=== PATIENT | female | born 1995 | race Caucasian/White ===

== ENCOUNTER 2022-09-14 21:34 | Emergency (ER) | payer BC, SELFPAY ==
[2022-09-14 21:41] VITALS: BP 134/87; PULSE 85; RESP 22; TEMP 36.8; O2SAT 99; BMI 29.6
--- NOTE | 2022-09-14 21:57 | ED_ITS ---
HPI - URI/Sore Throat General Chief Complaint: Upper Respiratory Infection Stated Complaint: URTI Time Seen by Provider: 09/14/22 21:57 Source: patient Limitations: no limitations History of Present Illness HPI Narrative: ill for the past week. cough. Now short of breath. No fever. Cough is dry. Feels weak and took past couple of days off work. Denies history of asthma MD elicited complaint: Reports cough Related Data Home Medications Medication Instructions Recorded Confirmed No Known Home Medications 09/14/22 09/14/22 Allergies Allergy/AdvReac Type Severity Reaction Status Date / Time amoxicillin Allergy Hives Verified 09/14/22 21:47 Review of Systems ROS Status of ROS 10 or more systems reviewed and unremarkable except as noted in history and below Respiratory Reports: shortness of breath and cough PFSH PFSH Social History Smoking status: Current every day smoker Exam Constitutional Vital Signs - 24 hr 09/14/22 21:41 09/14/22 22:47 09/14/22 22:46 Temperature 98.2 F Pulse Rate 69 Pulse Rate [Monitor] 85 Respiratory Rate 22 18 22 Blood Pressure [Left Arm] 134/87 H Pulse Oximetry 99 99 Oxygen Delivery Method Room Air 09/14/22 22:56 09/15/22 00:14 09/15/22 00:43 Temperature Pulse Rate Pulse Rate [Monitor] 78 82 Respiratory Rate 24 24 24 Blood Pressure [Left Arm] Pulse Oximetry 98 99 Oxygen Delivery Method Room Air Room Air Common normals: no apparent distress, average body habitus, oriented x3, no limitations, healthy appearing, alert and well nourished [facility] Common normals: normocephalic, head/scalp atraumatic and hearing grossly normal bilaterally Eye Common normals: PERRL, EOMs intact bilaterally and conjunctivae normal Chest Common normals: inspection of chest normal Respiratory Common normals: normal respiratory effort and no use of accessory muscles Other: coarse BS distant Cardio Common normals: regular rate, regular rhythm, S1 normal heart sound and S2 normal heart sound GI Common normals: Normal to inspection, nondistended, normoactive bowel sounds present, soft to palpation and non-tender Extremity Common normals: normal to inspection, full ROM, normal capillary refill and no joint enlargement Neuro Common normals: oriented x3, CN's II-XII intact bilaterally, moves all extremities and no focal motor deficits Psych Appearance: grossly normal Course Vital Signs Vital signs: Vital Signs Temperature 98.2 F 09/14/22 21:41 Pulse Rate 85 09/14/22 21:41 Respiratory Rate 22 09/14/22 21:41 Blood Pressure 134/87 H 09/14/22 21:41 Pulse Oximetry 99 09/14/22 21:41 Oxygen Delivery Method Room Air 09/14/22 21:41 Temperature 98.2 F 09/14/22 21:41 Pulse Rate 82 09/15/22 00:43 Respiratory Rate 24 09/15/22 00:43 Blood Pressure 134/87 H 09/14/22 21:41 Pulse Oximetry 99 09/15/22 00:43 Oxygen Delivery Method Room Air 09/15/22 00:43 MDM - URI/Sore Throat MDM Narrative Medical decision making narrative: patient ill with cough and feels short of breath. Swab positive for Rhino/entero virus. Cxray clear. Patient feeling better after albuterol treatment and solumedrol. No longer feels short of breath but still has cough. Discharged home with a prescription for prednisone and albuterol inhaler and is to follow up with her doctor for recheck Lab Data Labs: Lab Results 09/14/22 09/14/22 09/14/22 Range/Units 21:54 21:54 22:19 WBC 9.2 (4.0-11.0) 10^3/uL RBC 5.50 H (4.20-5.40) 10^6/uL Hgb 16.5 H (12.0-16.0) g/dL Hct 48.8 H (36.0-48.0) % MCV 88.7 (81.0-99.0) fL MCH 30.0 (26.7-34.0) pg MCHC 33.8 (29.9-35.2) g/dL RDW 14.2 (11.0-15.0) % Plt Count 246 (150-450) 10^3/uL MPV 10.2 (9.5-13.5) fL Neut % (Auto) 69.7 (43.0-75.0) % Lymph % (Auto) 24.3 (20.5-60.0) % [place] % (Auto) 4.9 (1.7-12.0) % Eos % (Auto) 0.4 L (0.9-7.0) % Baso % (Auto) 0.4 (0.2-2.0) % Neut # (Auto) 6.4 (1.4-6.5) 10^3/uL Lymph # (Auto) 2.2 (1.2-3.8) 10^3/uL [place] # (Auto) 0.5 (0.3-0.8) 10^3/uL Eos # (Auto) 0.0 (0.0-0.7) 10^3/uL Baso # (Auto) 0.0 (0.0-0.1) 10^3/uL Abs Immat Gran (auto) 0.03 (0.00-0.03) 10^3/uL Imm/Tot Granulo (auto) 0.3 (0.0-0.5) % D-Dimer 0.51 (<=0.59) mg/L FEU Sodium 136 (136-145) mmol/L Potassium 3.7 (3.5-5.1) mmol/L Chloride 102 (98-107) mmol/L Carbon Dioxide 19.7 L (21.0-32.0) mmol/L Anion Gap 18.0 BUN 12.0 (7.0-18.0) mg/dL Creatinine 0.92 (0.55-1.02) mg/dL Est GFR ( Amer) >60 (>=60) Est GFR (Non-Af Amer) >60 (>=60) BUN/Creatinine Ratio 13.0 Glucose 78 (74-106) mg/dL Lactate 1.5 (0.4-2.0) mmol/L Calcium 9.8 (8.5-10.1) mg/dL Adenovirus (PCR) Not detected (NOT DETECTE) C. pneumoniae DNA (PCR) Not detected (NOT DETECTE) Coronavirus Type OC43 Not detected (NOT DETECTE) Coronavirus Type HKU1 Not detected (NOT DETECTE) Coronavirus Type 229E Not detected (NOT DETECTE) SARS-CoV-2 (PCR) Negative Not detected (NEGATIVE) Coronavirus Type NL63 Not detected (NOT DETECTE) Human Metapneumovir PCR Not detected (NOT DETECTE) M. pneumoniae (PCR) Not detected (NOT DETECTE) Parainfluenza PCR Not detected (NOT DETECTE) Parainfluenza 2 (PCR) Not detected (NOT DETECTE) Parainfluenza 3 (PCR) Not detected (NOT DETECTE) Parainfluenza 4 (PCR) Not detected (NOT DETECTE) RSV (RT-PCR) Not detected (NOT DETECTE) Entero/Rhino (PCR) Detected A (NOT DETECTE) Bordetella pertussis (PCR) Not detected (NOT DETECTE) B parapertussis DNA PCR Not detected (NOT DETECTE) Influenza Type A (PCR) Not detected (NOT DETECTE) Influenza Type B (PCR) Not detected (NOT DETECTE) Discharge Plan Discharge Chief Complaint: Upper Respiratory Infection Clinical Impression: Acute bronchospasm, Viral infection Patient Disposition: Home, Self-Care Condition: Good Mode of Transportation: Private Vehicle Prescriptions / Home Meds: No Action No Known Home Medications Print Language: Jordanian Instructions: Viral Syndrome (ED), Bronchospasm (ED) Additional Instructions: Prednisone: 2 tablets daily for 5 days Stand Alone Forms: Portal Instructions Referrals: Sammie Schulz [Primary Care Provider] - 1 week Follow Up Appointments: follow up with your doctor for recheck in next 2-3 days Discharge Date/Time: 09/15/22 01:25
--- NOTE | 2022-09-14 22:00 | XR_ITS ---
[place] [id number] Patient Name: ESPERANZA FOOTE MRN: [id number] date: 1995 Sex: F Assigned Patient Location: ER Current Patient Location: ER Accession/Order Number: [id number] Exam Date: 09/14/2022 22:48 Report Date: 09/14/2022 23:22 At the request of: TARAS MELISSA Procedure: XR chest 1V XR chest 1V 09/14/2022 10:48 PM EDT CLINICAL INDICATION: Shortness of breath COMPARISON: None TECHNIQUE: Portable semiupright AP view of the chest. FINDINGS: There are no tubes or implants noted. The cardiomediastinal silhouette and pulmonary vasculature are within normal limits. The lungs are clear. No pneumothorax or pleural effusion. Osseous structures and soft tissues are within normal limits. IMPRESSION: No acute cardiopulmonary abnormality. Electronically authenticated by: LEW CHEN Date: 09/14/2022 23:22
[2022-09-14 22:10] LABS: Adenovirus NOT DETECTED (NOT DETECTE); Bordetella parapertussis NOT DETECTED (NOT DETECTE); Coronavirus 229E NOT DETECTED (NOT DETECTE); Coronavirus HKU1 NOT DETECTED (NOT DETECTE); Coronavirus NL63 NOT DETECTED (NOT DETECTE); Coronavirus OC43 NOT DETECTED (NOT DETECTE); Human Metapneumovirus NOT DETECTED (NOT DETECTE); Influenza A NOT DETECTED (NOT DETECTE); Influenza B NOT DETECTED (NOT DETECTE); Mycoplasma pneumoniae NOT DETECTED (NOT DETECTE); Parainfluenza Virus 1 NOT DETECTED (NOT DETECTE); Parainfluenza Virus 2 NOT DETECTED (NOT DETECTE); Parainfluenza Virus 3 NOT DETECTED (NOT DETECTE); Parainfluenza Virus 4 NOT DETECTED (NOT DETECTE); Respiratory Syncytial Virus NOT DETECTED (NOT DETECTE); SARS-CoV-2 NOT DETECTED (NOT DETECTE)
[2022-09-14 22:19] LABS: SARS-CoV-2 Ag NEGATIVE (NEGATIVE)
[2022-09-14 22:29] LABS: Basophils Percent Auto 0.4 % (0.2-2.0); Eosinophils Percent Auto 0.4 % (0.9-7.0); Hematocrit 48.8 % (36.0-48.0); Hemoglobin 16.5 g/dL (12.0-16.0); Immature Granulocytes Abs Auto 0.03 10^3/uL (0.00-0.03); Immature Granulocytes Pct Auto 0.3 % (0.0-0.5); Lymphocytes Absolute Auto 2.2 10^3/uL (1.2-3.8); Lymphocytes Percent Auto 24.3 % (20.5-60.0); Mean Corpuscular HGB Conc 33.8 g/dL (29.9-35.2); Mean Corpuscular Volume 88.7 fL (81.0-99.0); Mean Platelet Volume 10.2 fL (9.5-13.5); Monocytes Absolute Auto 0.5 10^3/uL (0.3-0.8); Monocytes Percent Auto 4.9 % (1.7-12.0); Neutrophils Absolute Auto 6.4 10^3/uL (1.4-6.5); Neutrophils Percent Auto 69.7 % (43.0-75.0); Platelet Count 246 10^3/uL (150-450); Red Cell Distribution Width 14.2 % (11.0-15.0); White Blood Count 9.2 10^3/uL (4.0-11.0)
[2022-09-14 22:41] LABS: Calcium 9.8 mg/dL (8.5-10.1); Carbon Dioxide 19.7 mmol/L (21.0-32.0); Chloride 102 mmol/L (98-107); Estimated GFR (African America >60 (>=60); Estimated GFR (Non-African Ame >60 (>=60); Glucose 78 mg/dL (74-106); Potassium 3.7 mmol/L (3.5-5.1); Sodium 136 mmol/L (136-145)
[2022-09-14] MEDS: 0.9 % SODIUM CHLORIDE 1,000 ML 999 ML IV (22:45)
[2022-09-14 22:46] VITALS: PULSE 69; RESP 22; O2SAT 99
[2022-09-14] MEDS: ALBUTEROL SULFATE 2.5 MG/3 ML VIAL NEB IH (22:46)
[2022-09-14 22:47] VITALS: RESP 18
[2022-09-14 22:50] LABS: Lactate/Lactic Acid 1.5 mmol/L (0.4-2.0)
[2022-09-14 22:52] LABS: D Dimer 0.51 mg/L FEU (<=0.59)
[2022-09-14 22:56] VITALS: PULSE 78; RESP 24; O2SAT 98
[2022-09-14 23:45] LABS: Human Rhinovirus/Enterovirus DETECTED (NOT DETECTE)
[2022-09-15] MEDS: METHYLPREDNISOLONE SOD SUCC PF 125 MG/2 ML VIAL IVP (00:10)
[2022-09-15 00:14] VITALS: RESP 24
[2022-09-15 00:43] VITALS: PULSE 82; RESP 24; O2SAT 99
--- NOTE | 2022-09-15 00:49 | RESP.RT ---
Pt given Albuterol MDI to go home with. Pt instructed on use and demonstrated back successfully.
[2022-09-15] MEDS: ALBUTEROL SULFATE 200 PUFF/6.7 GM INHALER IH (01:12)
== END 2022-09-15 01:25 | disposition home or self-care (01) ==
PROVIDERS: Emergency Provider Internal Medicine; PCP Nurse Practitioner
DX: J98.01 Acute bronchospasm (principal); B34.8 Other viral infections of unspecified site; Z20.822 Contact with and (suspected) exposure to COVID-19; F17.210 Nicotine dependence, cigarettes, uncomplicated
CPT/HCPCS: 0202U; 36415; 71045; 80048; 83605; 85025; 85378; 87635; 87811; 94640; 96374; 99284; J2930; U0003